=== PATIENT | male | born 1950 | race Caucasian/White ===

== ENCOUNTER 2021-01-17 10:41 | Day surgery (SDC) | payer OTHER ==
[~2021-01-17] VITALS: Ht 177.8 cm; Wt 86.2 kg
[2021-01-17 11:06] LABS: HEMOGLOBIN 15.5 g/dL (13.5-17.5); MCH 30.1 pg (26.0-34.0); MCHC 33.7 g/dL (31.0-37.0); MCV 89.4 fL (80.0-100.0); MEAN PLATELET VOLUME 8.2 fL (7.4-10.4); RBC 5.15 10x6/uL (4.20-6.10); RDW 14.7 % (11.5-14.5); WBC 8.9 10x3/uL (4.8-10.8)
[2021-01-17] MEDS ORDERED: TRAZODONE HCL50 MG PO (12:26)
[2021-01-17 12:29] VITALS: Ht 177.8 cm; Wt 86.2 kg
--- NOTE | 2021-01-17 13:25 | NUR ---
ORDER FOR F/U APPT AND GES TEST TO BE SCHEDULED FAXED TO OFFICE 1330 DC TEACHING COMPLETE. VERBALIZED UNDERSTANDING. 1350 PIV DC'D WITH CATHETER INTACT. PT GETTING DRESSED. 1425 DC'D VIA WC ACCOMPANIED BY SHADE WITH ALL BELONGINGS AND DC PACKET TO POV WITH PT SISTER DRIVING.
--- NOTE | 2021-01-18 06:25 | OP ---
PATIENT NAME: MARCO COTTON MEDICAL RECORD: [id number] :54 LOCATION:[facility] ADMISSION DATE: SURGEON: PRELA LYON DO DATE OF OPERATION: 01/17/2021 PROCEDURE: EGD with biopsies. INDICATION FOR PROCEDURE: Nausea and unintentional weight loss. SCOPE: Olympus video gastroscope. MEDICATIONS: Propofol 160 mg IV per anesthesia. ESTIMATED BLOOD LOSS: Minimal. COMPLICATIONS: None. FINDINGS: Informed consent was given. The patient was made comfortable with the above medication. After reaching an adequate level of sedation by slow IV push, the patient was placed on his left side. The endoscope was advanced under direct visualization through the mouth to the second portion of the duodenum with ease. The esophagus appeared normal down to the GE junction. At the GE junction, there was evidence of LA class A reflux-induced esophagitis. Cold forceps biopsies were taken from the squamocolumnar junction to rule out the presence of Parker's mucosa. The endoscope was advanced beyond the GE junction into the stomach and retroflexed to view the cardia and fundus. There was no hiatal hernia appreciated. The fundus and body of the stomach appeared normal. In the antrum and prepyloric region, there was some streaky erythema and granularity consistent with patchy mild chronic gastritis changes. Cold forceps biopsies were taken from the antrum and incisura to submit for histopathology and to rule out the presence of H. pylori. The endoscope was advanced beyond the pylorus into the duodenum. In the duodenal bulb, there were some and erosions consistent with mild duodenitis. This normalized into the second and third portion of the duodenum. Random cold forceps biopsies were taken and submitted for histopathology. The endoscope was withdrawn from the patient. The patient tolerated the procedure well. There were no complications. IMPRESSION: 1. LA class A reflux-induced esophagitis. 2. Mild chronic gastritis changes. 3. Duodenitis involving the bulb. PLAN AND RECOMMENDATIONS: 1. Discharge home when recovery parameters are met. 2. Follow up biopsy specimen results. 3. GERD diet and reflux precautions. 4. Start a trial of omeprazole 40 mg daily times 60 days. 5. Gastric emptying scan to evaluate bloating, abdominal pain, and nausea. 6. Follow up in GI clinic in 6 to 8 weeks. TRANSINT:[id number] Voice Confirmation ID: [id number] DOCUMENT ID: [id number] OPERATIVE REPORT [id number] MARCO COTTON,PERLA Perez DO at 0625 CC: [id number] DICTATION DATE: 01/17/21 1309 MICROSTRATEGY ARCHITECT DEVELOPER: 01/17/21 1655 [facility] [place] 01/17/21 [id number] [place] [address]
== END 2021-01-17 14:25 | disposition home or self-care (01) ==
LOC: D.OPS 10:41
PROVIDERS: Anesthesiology; ATTEND Internal Medicine Gastroenterology
DX: R11.0 Nausea (principal); R63.4 Abnormal weight loss; K21.00 Gastro-esophageal reflux disease with esophagitis, without bleeding; K29.50 Unspecified chronic gastritis without bleeding; K29.80 Duodenitis without bleeding

== ENCOUNTER 2021-01-22 20:41 | Emergency (ER) | payer OTHER ==
[~2021-01-22] VITALS: Ht 177.8 cm; Wt 86.4 kg
[~2021-01-22 20:41] MED LIST: TRAZODONE HCL50 MG PO
[2021-01-22 20:45] VITALS: BP 191/88; Ht 177.8 cm; Wt 86.4 kg
[2021-01-22 21:42] LABS: BASOPHILS 0.7 % (0-2); EOSINOPHILS 1.1 % (0-7); HEMATOCRIT 47.3 % (42.0-54.0); LYMPHOCYTES 24.4 % (15-50); MCH 29.8 pg (26.0-34.0); MCHC 33.8 g/dL (31.0-37.0); MCV 88.2 fL (80.0-100.0); MEAN PLATELET VOLUME 8.6 fL (7.4-10.4); MONOCYTES 10.1 % (2-11); NEUTROPHILS 63.7 % (40-80); PLATELET COUNT 332 10x3/uL (130-400); RBC 5.36 10x6/uL (4.20-6.10); RDW 14.9 % (11.5-14.5); WBC 13.1 10x3/uL (4.8-10.8)
[2021-01-22 21:52] LABS: ANION GAP 15.5 mmol/L (8-16); CALCIUM 9.2 mg/dL (8.5-10.1); CARBON DIOXIDE 22.6 mmol/L (21.0-32.0); CREATININE - SERUM 1.1 mg/dL (0.6-1.3); POTASSIUM - SERUM 4.1 mmol/L (3.5-5.1)
[2021-01-22 21:57] LABS: ALBUMIN 3.8 g/dL (3.4-5.0); BILIRUBIN - TOTAL 0.38 mg/dL (0.2-1.3); PROTEIN - SERUM 7.5 g/dL (6.4-8.2)
== END 2021-01-22 23:46 | disposition home or self-care (01) ==
LOC: D.ER 20:41
PROVIDERS: Student in an Organized Health Care Education/Training Program
DX: S30.811A Abrasion of abdominal wall, initial encounter (principal); K21.9 Gastro-esophageal reflux disease without esophagitis; M79.604 Pain in right leg; W20.8XXA Other cause of strike by thrown, projected or falling object, initial encounter; Y93.9 Activity, unspecified; Y92.9 Unspecified place or not applicable

== ENCOUNTER → 2021-02-21 12:29 | Outpatient (CLI) | payer OTHER ==
[2021-01-22 20:45] VITALS: BMI 27.3
== END | disposition home or self-care (01) ==
LOC: D.NM 12:29
PROVIDERS: ATTEND Internal Medicine Gastroenterology
DX: R11.0 Nausea (principal); R63.4 Abnormal weight loss; R10.13 Epigastric pain; R14.0 Abdominal distension (gaseous)